=== PATIENT | male | born 1965 | race Caucasian/White ===

== ENCOUNTER 2017-11-14 09:23 | Emergency (ER) | payer OTHER ==
[2017-11-14 09:51] VITALS: BP 123/82
[2017-11-14] MEDS ORDERED: predniSONE TAB* 20 MG PO ONE (10:00)
--- NOTE | 2017-11-14 10:10 | UC ---
Respiratory Complaint HPI - HPI Summary HPI Summary: patient has had 3 days of uncontrollable cough. no fever, no sinus pressure, states he gets this every year and only a z pack will do it. - History of Current Complaint Chief Complaint: UCRespiratory Stated Complaint: UPPER RESP Hx Obtained From: Patient Onset/Duration: Sudden Onset, Lasting Days Timing: Constant Severity Initially: Mild Severity Currently: Moderate Character: Cough: Nonproductive Aggravating Factors: Exertion, Deep Breaths, Recumbent Position Associated Signs And Symptoms: Positive: URI - Allergies/Home Medications Allergies/Adverse Reactions: Allergies Allergy/AdvReac Type Severity Reaction Status Date / Time No Known Allergies Allergy Verified 11/14/17 09:50 PMH/Surg Hx/FS Hx/Imm Hx Previously Healthy: Yes - Surgical History Surgical History: Yes Surgery Procedure, Year, and Place: umbilical hernia repair - Family History Known Family History: Negative: Respiratory Disease - Social History Alcohol Use: Occasionally Substance Use Type: None Smoking Status (MU): Never Smoked Tobacco Review of Systems Constitutional: Negative Skin: Negative Eyes: Negative ENT: Negative Respiratory: Cough Cardiovascular: Negative Gastrointestinal: Negative Genitourinary: Negative Motor: Negative Neurovascular: Negative Musculoskeletal: Negative Neurological: Negative Psychological: Negative Is Patient Immunocompromised?: No All Other Systems Reviewed And Are Negative: Yes Physical Exam Triage Information Reviewed: Yes Appearance: Well-Appearing, Well-Nourished, Pain Distress Vital Signs: Initial Vital Signs Temp 97.9 F 11/14/17 09:47 Pulse 74 11/14/17 09:47 Resp 12 11/14/17 09:47 BP 123/82 11/14/17 09:47 Pulse Ox 97 11/14/17 09:47 Vital Signs Reviewed: Yes Eye Exam: Normal ENT: Positive: Hearing grossly normal, Pharyngeal erythema Dental Exam: Normal Neck exam: Normal Neck: Positive: Supple, Nontender, No Lymphadenopathy Respiratory Exam: Normal Respiratory: Positive: Chest non-tender, Lungs clear, Normal breath sounds, Rhonchi Cardiovascular Exam: Normal Cardiovascular: Positive: RRR, No Murmur, Pulses Normal Abdominal Exam: Normal Abdomen Description: Positive: Nontender, No Organomegaly, Soft Bowel Sounds: Positive: Present Musculoskeletal Exam: Normal Musculoskeletal: Positive: Strength Intact, ROM Intact, No Edema Neurological Exam: Normal Neurological: Positive: Alert, Muscle Tone Normal Psychological Exam: Normal Skin Exam: Normal UC Diagnostic Evaluation - Laboratory O2 Sat by Pulse Oximetry: 97 Respiratory Course/Dx - Course Course Of Treatment: hx obtained, exam performed ,meds reviewed, treated with prednisone. educated on viral illness, z pack prescribed and recommend not starting until he has had a full week of symtpoms and the prednisone is truly not working. - Differential Dx/Diagnosis Differential Diagnosis/HQI/PQRI: Asthma, Bronchitis, Lower Resp Infection, Sinusitis Provider Diagnoses: cough, congestion Discharge - Discharge Plan Condition: Stable Disposition: HOME Prescriptions: Azithromycin TAB* [Zithromax TAB (Z-BHARAT) 250 mg #6 tabs] 2 tab PO .TODAY, THEN 1 DAILY #1 bharat predniSONE TAB* [Deltasone TAB*] 40 mg PO DAILY #14 tab Patient Education Materials: Bronchospasm (ED) Referrals: Jaquelin Cast [employer] [Primary Care Provider] - Additional Instructions: 1. take the prednisone as prescribed. increase fluid intake, get plenty of rest 2. If not improving in the next 4-5 days, start the antibiotic.
== END 2017-11-14 10:15 | disposition home or self-care (01) ==
LOC: UCCORT 09:23
DX: R05 Cough (principal); R09.81 Nasal congestion
CPT/HCPCS: 99212; G0463; J7512

== ENCOUNTER 2020-01-22 08:13 | Emergency (ER) | payer OTHER ==
[2020-01-22 08:25] VITALS: BP 128/80
--- NOTE | 2020-01-22 08:47 | UC ---
Respiratory Complaint HPI - HPI Summary HPI Summary: cough x 10 days cough is productive with yellow / green sputum. worse with deep breathing, better with rest, nasal congestion , pnd, sinus pain and pressure , no fever, no chills, no body aches, denies any wheezing, no sob - History of Current Complaint Chief Complaint: UCGeneralIllness Stated Complaint: COUGH Time Seen by Provider: 01/22/20 08:34 Hx Obtained From: Patient Onset/Duration: Gradual Onset, Lasting Days - 10, Still Present Severity Initially: Moderate Severity Currently: Moderate Pain Intensity: 0 Character: Cough: Productive Aggravating Factors: Exertion, Deep Breaths Alleviating Factors: Nothing Associated Signs And Symptoms: Positive: URI, Nasal Congestion, Sinus Discomfort. Negative: Dyspnea, Chills, Pleuritic Chest Pain, Wheezing, Hemoptysis, Dizziness, Calf Pain, Calf Swelling - Allergies/Home Medications Allergies/Adverse Reactions: Allergies Allergy/AdvReac Type Severity Reaction Status Date / Time No Known Allergies Allergy Verified 01/22/20 08:25 Home Medications: Home Medications Dm/PE/Acetaminophen/Doxylamine [Vicks Dayquil/Nyquil Cold] 1 mis PO BEDTIME PRN 05/30/16 [History Confirmed 01/22/20] Amoxicillin/Clavulanate TAB* [Augmentin TAB 875*] 875 mg PO BID #20 tab [Rx] Codeine Phosphate/Guaifenesin [Guaifen-Codeine 100-10 mg/5 ml] 10 ml PO Q8H PRN #120 ml MDD 30 ml 01/22/20 [Rx] guaiFENesin [Mucinex] 600 mg PO ONCE PRN 01/22/20 [History Confirmed 01/22/20] PMH/Surg Hx/FS Hx/Imm Hx - Additional Past Medical History Additional PMH: testicular ca - Surgical History Surgical History: Yes Surgery Procedure, Year, and Place: umbilical hernia repair - Family History Known Family History: Negative: Respiratory Disease - Social History Alcohol Use: None Substance Use Type: None Smoking Status (MU): Never Smoked Tobacco Review of Systems All Other Systems Reviewed And Are Negative: Yes Constitutional: Negative: Fever, Chills Skin: Positive: Negative Eyes: Positive: Negative ENT: Positive: Sore Throat, Nasal Discharge, Sinus Congestion, Sinus Pain/ Tenderness Respiratory: Positive: Cough Is Patient Immunocompromised?: No Physical Exam Triage Information Reviewed: Yes Appearance: Well-Appearing, No Pain Distress, Well-Nourished Vital Signs: Initial Vital Signs Temp 99.6 F 01/22/20 08:19 Pulse 73 01/22/20 08:19 Resp 17 01/22/20 08:19 BP 128/80 01/22/20 08:19 Pulse Ox 99 01/22/20 08:19 Vital Signs Reviewed: Yes Eye Exam: Normal Eyes: Positive: Conjunctiva Clear ENT: Positive: Normal ENT inspection, Hearing grossly normal, Pharyngeal erythema, Nasal congestion, Nasal drainage, TMs normal, Sinus tenderness. Negative: TM bulging, TM dull, TM red, Tonsillar swelling, Tonsillar exudate Neck exam: Normal Neck: Positive: Supple, Nontender, No Lymphadenopathy Respiratory: Positive: Chest non-tender, Lungs clear, Normal breath sounds, No respiratory distress Cardiovascular Exam: Normal Cardiovascular: Positive: RRR, No Murmur, Pulses Normal Abdominal Exam: Normal Abdomen Description: Positive: Soft Respiratory Course/Dx - Differential Dx/Diagnosis Provider Diagnosis: Bronchitis, Sinusitis Discharge ED - Sign-Out/Discharge Documenting (check all that apply): Patient Departure All imaging exams completed and their final reports reviewed: No Studies - Discharge Plan Condition: Stable Disposition: HOME Prescriptions: Amoxicillin/Clavulanate TAB* [Augmentin TAB 875*] 875 mg PO BID #20 tab Codeine Phosphate/Guaifenesin [Guaifen-Codeine 100-10 mg/5 ml] 10 ml PO Q8H PRN #120 ml MDD 30 ml PRN Reason: Cough Patient Education Materials: Acute Bronchitis (ED), Sinusitis (ED) Referrals: Jaquelin Cast NP [Primary Care Provider] - 7 Days - Billing Disposition and Condition Condition: STABLE Disposition: Home
== END 2020-01-22 08:44 | disposition home or self-care (01) ==
LOC: UCCORT 08:13
DX: J40 Bronchitis, not specified as acute or chronic (principal); J32.9 Chronic sinusitis, unspecified; J02.9 Acute pharyngitis, unspecified
CPT/HCPCS: 99212; G0463